=== PATIENT | female | born 1940 | race Caucasian/White ===

== ENCOUNTER 2017-03-15 11:01 | Emergency (ER) | payer OTHER ==
[2017-03-15 11:17] VITALS: BMI 31.3
[2017-03-15] MEDS ORDERED: SODIUM CHLORIDE 0.9% 1000 ML INFUS.BAG IV ONE (11:28)
--- NOTE | 2017-03-15 11:35 | PDOC ---
Attending Attestation - HPI HPI: 03/15/17 11:57 The patient is a 76 year old female, with a significant past medical history of hypertension, who presents to the emergency department with, productive cough with clear/white sputum and shortness of breath for approx. one day. The patient reports that approx. 5 days ago at [facility] she was diagnosed with the flu and prescribed Tamiflu. The patient reports taking the medication for approx 3 days. However, she reports a feeling of chest tightness after taking the Tamiflu so she stopped taking the medication. The patient reports she is worried about pneumonia so she decided to come to the ED for evaluation. The patient also reports subjective fevers for the past couple of days. She denies recent, headache or dizziness. She denies recent nausea, vomit, diarrhea or constipation. She denies recent chest pain, or palpitations. She denies recent body aches. She denies dysuria, frequency, urgency or hematuria. Allergies: Oseltamavir Primary Care Physician: Dr. Mancilla Documentation prepared by Bassam Crabtree, acting as lead medical technologist for Darcy Boyd MD. <Bassam Crabtree - Last Filed: 03/15/17 12:18> - Resident Resident Name: Radha Ochoa - ED Attending Attestation I have performed the following: I have examined & evaluated the patient, The case was reviewed & discussed with the resident, I agree w/resident's findings & plan, Exceptions are as noted - Physicial Exam PE: GENERAL: Awake, alert, and fully oriented, in no acute distress HEAD: No signs of trauma EYES: PERRLA, EOMI, sclera anicteric, conjunctiva clear ENT: Auricles normal inspection, hearing grossly normal, nares patent, oropharynx erythematous without exudates. Moist mucosa NECK: Normal ROM, supple. No JVD or masses. +Anterior cervical lymphadenopathy B /L. LUNGS: Breath sounds equal, clear to auscultation bilaterally. No wheezes, and no crackles HEART: Regular rate and rhythm, normal S1 and S2, no murmurs, rubs or gallops ABDOMEN: Soft, nontender, normoactive bowel sounds. No guarding, no rebound. No masses EXTREMITIES: Normal range of motion, no edema. No clubbing or cyanosis. No cords, erythema, or tenderness NEUROLOGICAL: Cranial nerves II through XII grossly intact. Normal speech, normal gait. SKIN: Warm, Dry, normal turgor, no rashes or lesions noted. - Medical Decision Making Pt with prior smoking history (remote), recently diagnosed with flu and now with productive cough. Will obtain CXR r/o pna. Will also give a neb for suspected bronchospasm. <Darcy Boyd - Last Filed: 03/15/17 12:44>
--- NOTE | 2017-03-15 11:39 | PDOC ---
History of Present Illness - General Chief Complaint: Weakness Stated Complaint: FLU LIKE SYMPTOMS Time Seen by Provider: 03/15/17 11:06 - History of Present Illness Initial Comments: 03/15/17 11:40 Patient is a 76 y.o. female with a PMH of HTN who presents to the ED today c/o productive cough and shortness of breath. Patient notes she was evaluated at [facility] last Wednesday (03/10/17) at which time she tested positive for Influenza - patient was started on a 5 day course of Tamiflu however she notes she only completed 7 doses (3-1/2 days) because she reacted to the medication with chest tightness without any hives, throat swelling, palpations. Patient states she came to the hospital today because she is concerned she has pneumonia. Patient denies any chest pain, abdominal pain, diarrhea/constipation, nausea/ vomiting, dysuria/hematuria. Allergy: Oseltamavir Surgical: denies PMD: Dr. Mancilla Past History - Past Medical History Allergies/Adverse Reactions: Allergies Allergy/AdvReac Type Severity Reaction Status Date / Time oseltamivir [From Tamiflu] AdvReac Verified 03/15/17 11:15 Home Medications: Ambulatory Orders Amlodipine Besylate [Norvasc -] 2.5 mg PO DAILY 03/15/17 Aspirin [ASA -] 325 mg PO DAILY 03/15/17 Azithromycin 250 mg PO DAILY 4 Days #4 tablet 03/15/17 Hydrochlorothiazide 12.5 mg PO DAILY 03/15/17 Lisinopril [Zestril] 30 mg PO DAILY 03/15/17 Metoprolol Tartrate 100 mg PO HS 03/15/17 COPD: No HTN: Yes - Suicide/Smoking/Psychosocial Hx Smoking History: Former smoker Have you smoked in the past 12 months: No If you are a former smoker, when did you quit?: 2000 Information on smoking cessation initiated: No *Physical Exam - Vital Signs Last Vital Signs Temp Pulse Resp BP Pulse Ox 98 F 79 18 134/81 99 03/15/17 11:15 03/15/17 11:15 03/15/17 11:15 03/15/17 11:15 03/15/17 11:15 ED Treatment Course - LABORATORY CBC & Chemistry Diagram: 03/15/17 11:29 03/15/17 11:29 - RADIOLOGY Radiology Studies Ordered: Category Date Time Status CHEST PA & LAT [RAD] Stat Radiology 03/15/17 11:32 Ordered Medical Decision Making - Medical Decision Making 03/15/17 11:45 Patient is a 76 y.o. female who presents with a 2 day h/o productive cough and dyspnea. As patient was recently diagnosed with Influenza symptoms likely viral , however will obtain CXR to r/o other active infection including bronchitis, pneumonia. Duo-Neb x1. 03/15/17 13:57 CXR shows no definitive infiltrate/consolidation, possible infiltrate on R upper lung field. Will discharge with Z-pack. Patient given first dose in ED and observed for 30 minutes with no hives, throat swelling or other edema, palpitations, dyspnea. Patient discharged home with return precautions and instruction to f/u with PCP in 3-5 days. I discussed the physical exam findings, ancillary test results and final diagnoses with the patient. I answered all of the patient's questions. The patient was satisfied with the care received and felt comfortable with the discharge plan and treatment plan. The patient will return to the Emergency Department with any new, persistent or worsening symptoms. *DC/Admit/Observation/Transfer Diagnosis at time of Disposition: Cough - Discharge Dispostion Disposition: HOME Condition at time of disposition: Good Admit: No - Prescriptions Prescriptions: Azithromycin 250 mg PO DAILY 4 Days #4 tablet - Referrals Referrals: Pranav Mancilla [Primary Care Provider] - - Patient Instructions Printed Discharge Instructions: DI for Cough -- Adult Additional Instructions: You were evaluated today for cough and shortness of breath. All of your labs showed no abnormal findings. A prescription for an antibiotic has been called to your pharmacy. Please complete the entire antibiotic course and make a follow-up appointment with your primary care doctor in 3-5 days. Return to the Emergency Department for any new/worsening/concerning symptoms. - Post Discharge Activity
[2017-03-15 11:50] LABS: BASO % 0.9 % (0-2.0); EOS % 0.9 % (0-4.5); HEMOGLOBIN 12.5 GM/dL (10.7-15.3); LYMPH % 30.5 % (8-40); MCH 27.8 pg (25.7-33.7); MCHC 32.2 g/dl (32.0-36.0); MEAN CELL VOLUME 86.3 fl (80-96); MEAN PLT VOLUME 7.7 fl (7.5-11.1); MONO % 11.7 % (3.8-10.2); PLATELET COUNT 281 K/MM3 (134-434); RBC 4.52 M/mm3 (3.60-5.2); RDW 14.8 % (11.6-15.6); WHITE BLOOD COUNT 5.4 K/mm3 (4.0-10.0)
[2017-03-15 12:23] LABS: ALBUMIN 4.1 g/dl (3.4-5.0); ALK PHOS 66 U/L (45-117); ANION GAP 9 (8-16); BILIRUBIN,TOTAL 0.4 mg/dL (0.2-1.0); BLOOD UREA NITROGEN 19 mg/dL (7-18); CALCIUM 8.4 mg/dL (8.5-10.1); CHLORIDE 91 mmol/L (98-107); CO2 31 mmol/L (21-32); CREATININE 1.2 mg/dL (0.55-1.02); GLUCOSE,RANDOM 107 mg/dL (74-106); POTASSIUM 4.3 mmol/L (3.5-5.1); SGOT/AST 32 U/L (15-37); SGPT/ALT 31 U/L (12-78); SODIUM 131 mmol/L (136-145); TOT PROT 7.4 g/dl (6.4-8.2)
[2017-03-15] MEDS ORDERED: ALBUTEROL SO4 0.083% IH SOL 2.5 MG/3 ML VIAL.NEB. NEB ONE ×2 (12:37→12:44)
[2017-03-15 12:53] LABS: URINE APPEARANCE CLEAR; URINE BILIRUBIN NEGATIVE (NEGATIVE); URINE BLOOD NEGATIVE (NEGATIVE); URINE COLOR STRAW; URINE GLUCOSE (UA) NEGATIVE (NEGATIVE); URINE KETONE NEGATIVE (NEGATIVE); URINE LEUK ESTERASE NEGATIVE (NEGATIVE); URINE NITRITE NEGATIVE (NEGATIVE); URINE PROTEIN NEGATIVE (NEGATIVE)
[2017-03-15 13:59] VITALS: BP 142/67; PULSE 68; TEMP 97.7
[2017-03-15] MEDS ORDERED: ACETAMINOPHEN 500 MG TABLET (FP) PO ONE (13:59)
[2017-03-15] MEDS ORDERED: ACETAMINOPHEN 325 MG TABLET (FP) ONE (14:03)
[2017-03-15] MEDS ORDERED: AZITHROMYCIN 250 MG TABLET ONE (14:09)
[2017-03-15] MEDS ORDERED: AZITHROMYCIN 250 MG TABLET PO ONE (14:10)
== END 2017-03-15 14:39 | disposition home or self-care (01) ==
LOC: JER 11:01
PROC: 3E0F7GC Introduction of Other Therapeutic Substance into Respiratory Tract, Via Natural or Artificial Opening (ICD-10-PCS; principal; 2017-03-15)
DX: J11.1 Influenza due to unidentified influenza virus with other respiratory manifestations (principal); I10 Essential (primary) hypertension
CPT/HCPCS: 36415; 71046-TC; 80053; 81003; 85025; 94640; 99285-25